=== PATIENT | female | born 1970 ===

== ENCOUNTER 2018-02-05 20:04 | Inpatient (IN) | payer OTHER ==
[2018-02-05] MEDS ORDERED: Sodium Chloride 0.9% 1,000 ML IV STA (21:00)
--- NOTE | 2018-02-05 21:04 | ED PDOC ---
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 Patient states when pain started she was vomiting, which stopped that day, but pain persisted. Associated fever x 2 days. Denies headache, dizziness, nausea/ vomiting, cough, chest pain, shortness of breath, palpitations, changes in bowel movements, urinary symptoms, recent travel, sick contacts. Past Medical History Reviewed: Historical Data, Nursing Documentation, Vital Signs Vital Signs: Last Vital Signs Temp 98.7 F 02/05/18 22:34 Pulse 76 02/05/18 22:34 Resp 16 02/05/18 22:34 BP 129/53 L 02/05/18 22:34 Pulse Ox 98 02/05/18 23:05 - Medical History PMH: No Chronic Diseases - Surgical History Surgical History: No Surg Hx - Family History Family History: States: No Known Family Hx - Allergies Allergies/Adverse Reactions: Allergies Allergy/AdvReac Type Severity Reaction Status Date / Time No Known Allergies Allergy Verified 02/05/18 20:18 Review of Systems ROS Statement: Except As Marked, All Systems Reviewed And Found Negative Constitutional: Positive for: Fever Gastrointestinal: Positive for: Abdominal Pain Physical Exam - Reviewed Nursing Documentation Reviewed: Yes Vital Signs Reviewed: Yes - Physical Exam Appears: Positive for: Well, Non-toxic, No Acute Distress Head Exam: Positive for: ATRAUMATIC, NORMAL INSPECTION, NORMOCEPHALIC Skin: Positive for: Normal Color Eye Exam: Positive for: Normal appearance ENT: Positive for: Normal ENT Inspection Cardiovascular/Chest: Positive for: Regular Rate, Rhythm Respiratory: Positive for: Normal Breath Sounds Gastrointestinal/Abdominal: Positive for: Bowel Sounds, Soft, Tenderness (RUQ, right flank, epigastric) Back: Positive for: Normal Inspection Extremity: Positive for: Normal ROM Neurologic/Psych: Positive for: Alert, Oriented (x3) - Laboratory Results Result Diagrams: 02/05/18 21:42 02/05/18 21:42 - ECG ECG: Positive for: Viewed By Me (reviewed by ED attending) ECG Rhythm: Positive for: Sinus Rhythm O2 Sat by Pulse Oximetry: 98 - Radiology X-Ray: Viewed By Me X-Ray Interpretation: No Acute Disease - Progress ED Course And Treament: labs, urine, abdomen u/s, IV fluids, IV toradol, PO tylenol EXAM: US Abdomen Limited, Right Upper Quadrant CLINICAL HISTORY: The patient is a 47 years female; Pain and signs and symptoms; Fever and nausea and vomiting; Abdominal pain; Epigastric; Additional info: Right upper abdominal pain, fever 9:00 PM TECHNIQUE: Real-time ultrasound of the right upper quadrant with image documentation. COMPARISON: No relevant prior studies available. FINDINGS: Liver: Unremarkable. Gallbladder: Cholelithiasis and gallbladder wall thickening. 2.3 x 2.5 cm calculus noted at the gallbladder neck. As per the technologist note, sonographic Austin's sign is negative. Correlate clinically. Common bile duct: Common bile duct is dilated measuring up to 7.5 mm.. Pancreas: Unremarkable as visualized. Right kidney: Unremarkable. No hydronephrosis. IMPRESSION: Cholelithiasis and gallbladder wall thickening. 2.3 x 2.5 cm calculus noted at the gallbladder neck. As per the technologist note, sonographic Austin's sign is negative. Correlate clinically. Case discussed with ED attending Dr. Page, will call GI for consult and start IV antibiotics Case discussed with Dr. Ferrara, covering for Dr. Johns, GI on-call: states no GI intervention at this time; recommends IV antibiotics, NPO and surgical consult Case discussed with Dr. Jeronimo, surgical supervisor on-call; will admit to Dr. Nielsen's service for OR in am Disposition - Clinical Impression Clinical Impression: Acute cholecystitis - Patient ED Disposition Is Patient to be Admitted: Yes - Disposition Disposition Time: 00:00 Condition: FAIR
[2018-02-05 21:52] LABS: BASO % 0.3 % (0.0-2.0); EOS # 0.1 K/uL (0.0-0.7); EOS % 0.4 % (0.0-4.0); HEMOGLOBIN 12.4 g/dL (12.0-16.0); LYMPH # 1.8 K/uL (1.0-4.3); LYMPH % 12.8 % (20.0-40.0); MEAN CORPUSCULAR HGB CONC 34.1 g/dL (33.0-37.0); MEAN PLATELET VOLUME 8.4 fl (7.2-11.7); MONO # 1.2 K/uL (0.0-0.8); MONO % 8.3 % (0.0-10.0); NEUT % 78.2 % (50.0-75.0); NRBC % 0.1 % (0.0-0.0); RBC 4.28 Mil/uL (3.80-5.20); RED CELL DISTRIBUTION WIDTH 13.1 % (11.5-14.5); WHITE BLOOD COUNT 14.1 K/uL (4.8-10.8)
[2018-02-05 22:08] LABS: SQUAMOUS EPITHIAL < 1 /hpf (0-5); URINE BACTERIA RARE (<OCC); URINE BILIRUBIN NEGATIVE (NEGATIVE); URINE BLOOD LARGE (NEGATIVE); URINE CLARITY CLEAR (Clear); URINE COLOR YELLOW (YELLOW); URINE GLUCOSE (UA) NEG (Normal); URINE LEUKOCYTE ESTERASE NEG Leu/uL (Negative); URINE PROTEIN NEGATIVE (NEGATIVE); URINE UROBILINOGEN 0.2-1.0 mg/dL (0.2-1.0)
[2018-02-05 22:14] LABS: CALCIUM 8.4 mg/dL (8.4-10.2); GFR AFRICAN-AMERICAN > 60; GFR NON-AFRICAN AMERICAN > 60; LIPASE 32 U/L (23-300)
[2018-02-05 22:35] LABS: ALB/GLOB RATIO 1.1 (1.0-2.1); ALBUMIN 4.2 g/dL (3.5-5.0); ALT/SGPT 42 U/L (9-52); AST/SGOT 51 U/L (14-36); BLOOD UREA NITROGEN 4 mg/dl (7-17)
[2018-02-05] MEDS ORDERED: metroNIDAZOLE 500mg/100ml NS 100 ML IV STA (23:33)
[2018-02-05] MEDS ORDERED: Ciprofloxacin 400mg/200ml D5W 400 MG/200 ML BAG IV ONE (23:33)
--- NOTE | 2018-02-06 00:39 | CP.PCM.HP ---
History of Present Illness - History of Present Illness History of Present Illness: General Surgery Dr. Nielsen 47 y/o F w/ no PMHx presents to the ED c/o abd pain. Pt reports pain started Saturday in epigastric region w/ associated N/V. Pt reports 14 episodes NBNB vomiting on Saturday, which has since resolved. However pt now reports subjective F/C and pain more localized to RUQ w/ radiation down R flank which is what prompted pt to come in to ED for evaluation. Pt denies similar pain the past. Pain made worse by movement. Nothing makes pain better. Pt denies CP, SOB , D/C. PMHx: denies Meds: reviewed in chart NKDA PSHx: denies SHx: denies tobacco, EtOH, drug use FHx: noncontributory Present on Admission - Present on Admission Any Indicators Present on Admission: No Review of Systems - Review of Systems All systems: reviewed and no additional remarkable complaints except (see HPI) Past Patient History - Past Social History Smoking Status: Never Smoked - PSYCHIATRIC Hx Substance Use: No - SURGICAL HISTORY Hx Surgeries: No Meds Allergies/Adverse Reactions: Allergies Allergy/AdvReac Type Severity Reaction Status Date / Time No Known Allergies Allergy Verified 02/05/18 20:18 Physical Exam - Constitutional Appears: Non-toxic, No Acute Distress - Head Exam Head Exam: NORMAL INSPECTION - Eye Exam Eye Exam: Normal appearance - ENT Exam ENT Exam: Mucous Membranes Moist - Respiratory Exam Respiratory Exam: NORMAL BREATHING PATTERN. absent: Accessory Muscle Use, Respiratory Distress - Cardiovascular Exam Cardiovascular Exam: REGULAR RHYTHM. absent: Bradycardia, Tachycardia - GI/Abdominal Exam GI & Abdominal Exam: Soft, Tenderness (RUQ TTP). absent: Distended, Firm, Guarding, Rebound - Expanded GI/Abdominal Exam Expanded Expanded GI & Abdominal Exam: Austin's Sign - Extremities Exam Extremities exam: Positive for: normal inspection - Neurological Exam Neurological exam: Alert, Oriented x3 - Psychiatric Exam Psychiatric exam: Normal Affect, Normal Mood - Skin Skin Exam: Dry, Intact, Normal Color, Warm Results - Vital Signs Recent Vital Signs: Last Vital Signs Temp 98.7 F 02/05/18 22:34 Pulse 76 02/05/18 22:34 Resp 16 02/05/18 22:34 BP 129/53 L 02/05/18 22:34 Pulse Ox 98 02/05/18 23:05 - Labs Result Diagrams: 02/05/18 21:42 02/05/18 21:42 Labs: Laboratory Results - last 24 hr 02/05/18 02/05/18 02/05/18 21:42 21:42 21:42 WBC 14.1 H RBC 4.28 Hgb 12.4 Hct 36.4 MCV 85.0 MCH 29.0 MCHC 34.1 RDW 13.1 Plt Count 321 MPV 8.4 Neut % (Auto) 78.2 H Lymph % (Auto) 12.8 L [place] % (Auto) 8.3 Eos % (Auto) 0.4 Baso % (Auto) 0.3 Neut # (Auto) 11.0 H Lymph # (Auto) 1.8 Ceiba # (Auto) 1.2 H Eos # (Auto) 0.1 Baso # (Auto) 0.0 Sodium 136 Potassium 4.0 Chloride 100 Carbon Dioxide 27 Anion Gap 13 BUN 4 L Creatinine 0.5 L Est GFR ( Amer) > 60 Est GFR (Non-Af Amer) > 60 Random Glucose 111 H Lactic Acid 0.7 Calcium 8.4 Total Bilirubin 1.1 AST 51 H ALT 42 Alkaline Phosphatase 122 Total Protein 8.1 Albumin 4.2 Globulin 3.9 Albumin/Globulin Ratio 1.1 Lipase 32 Urine Color Urine Clarity Urine pH Ur Specific [place] Urine Protein Urine Glucose (UA) Urine Ketones Urine Blood Urine Nitrate Urine Bilirubin Urine Urobilinogen Ur Leukocyte Esterase Urine RBC (Auto) Urine Microscopic WBC Ur Squamous Epith Cells Urine Bacteria 02/05/18 21:42 WBC RBC Hgb Hct MCV MCH MCHC RDW Plt Count MPV Neut % (Auto) Lymph % (Auto) [place] % (Auto) Eos % (Auto) Baso % (Auto) Neut # (Auto) Lymph # (Auto) [place] # (Auto) Eos # (Auto) Baso # (Auto) Sodium Potassium Chloride Carbon Dioxide Anion Gap BUN Creatinine Est GFR ( Amer) Est GFR (Non-Af Amer) Random Glucose Lactic Acid Calcium Total Bilirubin AST ALT Alkaline Phosphatase Total Protein Albumin Globulin Albumin/Globulin Ratio Lipase Urine Color Yellow Urine Clarity Clear Urine pH 7.0 Ur Specific [place] 1.005 Urine Protein Negative Urine Glucose (UA) Neg Urine Ketones Trace Urine Blood Large Urine Nitrate Negative Urine Bilirubin Negative Urine Urobilinogen 0.2-1.0 Ur Leukocyte Esterase Neg Urine RBC (Auto) 7 H Urine Microscopic WBC 1 Ur Squamous Epith Cells < 1 Urine Bacteria Rare - Imaging and Cardiology US - abdomen Status: Image reviewed by me, Report reviewed by me Assessment & Plan - Assessment and Plan (Free Text) Assessment: 47 y/o F w/ abd pain 2/2 acute cholecystitis - NPO/IVF - IV Abx - pain management - anti-emetic - AM labs - monitor vitals Q6 - OR tomorrow vs this admission for maria eugenia ernestina (TBD) - encourage OOB to chair/Amb/IS use Pt discussed w/ Dr. Morales Jeronimo DO PGY3
[2018-02-06] MEDS ORDERED: HYDROmorphone 0.5 mg/0.5 ml ISec IVP PRN (00:45)
[2018-02-06] MEDS ORDERED: metroNIDAZOLE 500mg/100ml NS 100 ML IVPB ONE (01:13)
[2018-02-06] MEDS: Lactated Ringer's 1,000 ML IV SCH (01:19)
[2018-02-06] MEDS: metroNIDAZOLE 500mg/100ml NS 100 ML IVPB SCH ×3 (01:23→20:42)
[2018-02-06] MEDS: Ciprofloxacin 400mg/200ml D5W 400 MG/200 ML BAG IVPB SCH ×3 (01:23→21:39)
[2018-02-06] MEDS ORDERED: Ciprofloxacin 400mg/200ml D5W 400 MG/200 ML BAG IVPB ONE (02:26)
--- NOTE | 2018-02-06 07:33 | CARD ---
APPROVED REPORT Date of service: 02/06/2018 <Conclusion> Normal sinus rhythm Normal ECG
[2018-02-06 07:37] LABS: BASO # 0.1 K/uL (0.0-0.2); EOS # 0.4 K/uL (0.0-0.7); EOS % 3.5 % (0.0-4.0); HEMOGLOBIN 9.2 g/dL (12.0-16.0); LYMPH # 3.9 K/uL (1.0-4.3); LYMPH % 34.7 % (20.0-40.0); MEAN CELL VOLUME 87.4 fl (81.0-99.0); MEAN CORPUSCULAR HEMOGLOBIN 28.2 pg (27.0-31.0); MEAN CORPUSCULAR HGB CONC 32.2 g/dL (33.0-37.0); MEAN PLATELET VOLUME 10.6 fl (7.2-11.7); MONO # 2.5 K/uL (0.0-0.8); MONO % 22.1 % (0.0-10.0); NEUT # 4.3 K/uL (1.8-7.0); NEUT % 38.7 % (50.0-75.0); NRBC % 0.1 % (0.0-0.0); PLATELET COUNT 318 K/uL (130-400); RBC 3.25 Mil/uL (3.80-5.20); WHITE BLOOD COUNT 11.2 K/uL (4.8-10.8)
[2018-02-06 07:42] LABS: INR 1.2; PARTIAL THROMBOPLASTIN TIME 31.9 Seconds (25.6-37.1); PROTHROMBIN TIME 13.2 Seconds (9.8-13.1)
--- NOTE | 2018-02-06 08:32 | RAD ---
Date of service: 02/06/2018 HISTORY: admit COMPARISON: No prior. FINDINGS: LUNGS: The lungs are well inflated and clear. PLEURA: No significant pleural effusion identified, no pneumothorax apparent. CARDIOVASCULAR: Normal. OSSEOUS STRUCTURES: No significant abnormalities. VISUALIZED UPPER ABDOMEN: Normal. OTHER FINDINGS: None. IMPRESSION: No active pulmonary disease.
[2018-02-06 08:40] LABS: ALB/GLOB RATIO 1.1 (1.0-2.1); ALBUMIN 3.6 g/dL (3.5-5.0); ALT/SGPT 45 U/L (9-52); AST/SGOT 46 U/L (14-36); BLOOD UREA NITROGEN 5 mg/dl (7-17); CALCIUM 8.2 mg/dL (8.4-10.2); GFR AFRICAN-AMERICAN > 60; GFR NON-AFRICAN AMERICAN > 60
--- NOTE | 2018-02-06 09:10 | US ---
Date of service: 02/05/2018 HISTORY: right upper abdominal pain, fever COMPARISON: None. TECHNIQUE: Sonographic evaluation of the right upper quadrant of the abdomen. FINDINGS: LIVER: Measures 15.5 cm in length. Normal echogenicity of the liver parenchyma. No mass. No intrahepatic bile duct dilatation. GALLBLADDER: The gallbladder is distended with severe wall thickening, there are multiple gallstones with a 2.5 cm stone in the region of the neck of the gallbladder. No pericholecystic fluid. The sonographic Austin's sign is negative. COMMON BILE DUCT: Measures 7.5 mm. Diffuse dilatation of the common bile duct without evidence for choledocholithiasis. PANCREAS: Unremarkable as visualized. No mass. No ductal dilatation. RIGHT KIDNEY: Measures 9.6 cm in length. Normal echogenicity. No calculus, mass, or hydronephrosis. AORTA: No aneurysmal dilatation. IVC: Unremarkable. OTHER FINDINGS: None . IMPRESSION: The constellation of findings may represent acute calculus cholecystitis in the appropriate clinical setting. Diffuse dilatation of the common bile duct without evidence for choledocholithiasis. If clinically indicated, correlation with MRCP may be performed to exclude distal stone. A preliminary report was provided by [employer] services.
[2018-02-06] MEDS ORDERED: Potassium CL 10mEq/100ml 100 ML IVPB ONE (11:44)
[2018-02-06 11:46] LABS: ANISOCYTOSIS SLIGHT; BANDS 1 % (0-2); LARGE PLATELETS PRESENT; LYMPHOCYTE 12 % (20-50); MONOCYTE 4 % (0-10); NEUTROPHIL 82 % (42-75); PLATELET ESTIMATE NORMAL (NORMAL); REACTIVE LYMPHOCYTES 1 % (0-0); TOTAL CELLS COUNTED 100
[2018-02-06] MEDS: Potassium CL 10 MEQ/50 ML 50 ML IVPB SCH ×2 (12:00→13:00)
[2018-02-06] MEDS ORDERED: ceFAZolin IV 1 gm in Dextrose 0 GM/0 ML BAG IVPB ONE (12:56)
[2018-02-06] MEDS ORDERED: Rocuronium 10 mg/ml (5 ml) ONE (13:27)
[2018-02-06] MEDS ORDERED: Propofol 10 mg/ml Inj (20 ML) ONE (13:27)
[2018-02-06] MEDS ORDERED: Midazolam 2 MG/2 ML VIAL ONE (13:27)
[2018-02-06] MEDS ORDERED: Succinylcholine 200 mg/10 ml Inj IV ONE (13:28)
[2018-02-06] MEDS ORDERED: Lactated Ringer's 1,000 ML IV ONE ×3 (13:30→19:30)
--- NOTE | 2018-02-06 15:53 | PCM.SURG1 ---
Surgeon's Initial Post Op Note - Surgeon's Notes Surgeon: Dr. Nielsen Scrap Sawyer: Dr. Riggins Type of Anesthesia: General Endo Anesthesia Administered By: Alie Pre-Operative Diagnosis: Acute Cholecystitis Operative Findings: same Post-Operative Diagnosis: same Operation Performed: Laparoscopic Cholecystectomy Specimen/Specimens Removed: gallbladder Estimated Blood Loss: EBL {In ML}: 25 Blood Products Given: N/A Drains Used: No Drains Post-Op Condition: Good Date of Surgery/Procedure: 02/06/18 Time of Surgery/Procedure: 15:53
[2018-02-06] MEDS ORDERED: Lactated Ringer's 1,000 ML IV SCH (16:15)
[2018-02-06] MEDS: HYDROmorphone 1 mg/ml ISec IVP PRN ×2 (16:33→16:42)
[2018-02-06] MEDS ORDERED: HYDROmorphone 1 mg/ml ISec ONE (16:42)
[2018-02-07] MEDS: Oxycodone/Acetaminophen 5/325 mg Tab PO PRN ×3 (01:08→18:14)
--- NOTE | 2018-02-07 03:12 | OP ---
Copied To: Nora Riggins DO Attending MD: Claudia Nielsen MD PROCEDURE DATE: 02/06/2018 SURGEON: Claudia Nielsen MD MANAGER BUSINESS MANAGEMENT: Nora Riggins DO PREOPERATIVE DIAGNOSIS: Acute cholecystitis. POSTOPERATIVE DIAGNOSIS: Acute cholecystitis. PROCEDURE: Laparoscopic cholecystectomy. INDICATIONS: This is a 47-year-old female who developed right upper quadrant pain, nausea and vomiting, and on workup was found to have acute cholecystitis with a normal common bile duct. Laparoscopic cholecystectomy was indicated. DESCRIPTION OF PROCEDURE: The patient was placed on the operating table in the supine position. General anesthesia was induced. A time-out was completed verifying correct patient, procedure, site, positioning, implants and special equipment prior to beginning the procedure. An NG tube was placed. The abdomen was prepped and draped in the usual sterile fashion. An incision was made in a natural skin line below the umbilicus. The fascia was elevated, and the Veress needle was inserted. Proper position was confirmed by aspiration and saline meniscus test. The abdomen was insufflated with carbon dioxide to a pressure of 15 mmHg. The patient tolerated insufflation well. A laparoscope was inserted, and the abdomen inspected. No injuries from initial trocar placement were noted. Additional trocars were then inserted in the following locations, and a 11-mm trocar in the epigastrium and two 5-mm trocars along the right costal margin. The abdomen was inspected and no abnormalities were found. The table was placed in reverse Trendelenburg position with the right side up. The gallbladder was then aspirated with the needle, and bile was drained. Filmy adhesions within the gallbladder and the duodenum were lysed. The dome of the gallbladder was grasped with an atraumatic grasper, passed to the lateral port and retracted over the dome of the liver. The infundibulum was grasped with an atraumatic grasper to the midclavicular port and retracted towards the right lower quadrant. This maneuver exposed Calot triangle. The peritoneum overlying the gallbladder infundibulum was incised, and the cystic duct and cystic artery were identified and circumferentially dissected. The cystic duct and cystic artery were then triply clipped and divided close to the gallbladder. The gallbladder was then dissected from its peritoneal attachments by electrocautery. Hemostasis was checked. The gallbladder contained stones were removed using an endoscopic retrieval bag through the subxiphoid port. The gallbladder was passed off the table as a specimen. The gallbladder fossa was copiously irrigated with saline and hemostasis was obtained. There was no evidence of bleeding from the gallbladder fossa or cystic artery, and there was no leakage of bile from the cystic duct stump. Secondary trocars were removed. The laparoscope was withdrawn, and the umbilical trocar was removed. The abdomen was allowed to collapse. The 12-mm trocar site was closed with a series of three [id number] 0 Vicryl sutures. The skin was then closed with subcuticular sutures of 4-0 Monocryl, and topical skin adhesive was applied. The NG tube was removed. The patient tolerated the procedure well. She was extubated and taken to the postanesthesia care unit in stable condition. Nora Riggins DO Claudia Nielsen MD
[2018-02-07] MEDS: metroNIDAZOLE 500mg/100ml NS 100 ML IVPB SCH ×3 (04:10→20:08)
[2018-02-07] MEDS: Ciprofloxacin 400mg/200ml D5W 400 MG/200 ML BAG IVPB SCH ×3 (05:24→21:15)
[2018-02-07] MEDS: Lactated Ringer's 1,000 ML IV SCH ×2 (05:29→14:38)
--- NOTE | 2018-02-07 08:32 | CP.PCM.PN ---
Subjective - Date & Time of Evaluation Date of Evaluation: 02/07/18 Time of Evaluation: 07:00 - Subjective Subjective: General Surgery Pt Seen and examined. Reports pain at incisions, improves with medication. Desaturating overnight to 90% without O2. She does not take deep breaths due to pain. Febrile overnight to Tmax of 101.6 @ 2 AM. says she still feels febrile. Tolerated liquids last night, did not try more. Denies Nausea, emesis, chills. Objective - Vital Signs/Intake and Output Vital Signs (last 24 hours): Temp Pulse Resp BP Pulse Ox 98.6 F 100 H 16 119/62 95 02/07/18 08:22 02/07/18 08:22 02/07/18 08:22 02/07/18 08:22 02/07/18 08:22 Intake and Output: 02/07/18 02/07/18 06:59 18:59 Intake Total 2720 Output Total 800 Balance 1920 - Medications Medications: Current Medications Acetaminophen (Tylenol 325mg Tab) 650 mg PO Q6 PRN PRN Reason: Fever >100.4 F Last Admin: 02/07/18 02:06 Dose: 650 mg Hydromorphone HCl (Dilaudid) 0.5 mg IVP Q3 PRN PRN Reason: Pain, severe (8-10) Last Admin: 02/06/18 21:47 Dose: 0.5 mg Ciprofloxacin (Cipro 400mg/200ml Dsw) 400 mg in 200 mls @ 200 mls/hr IVPB Q8@ 0500,1300,2100 IVANA PRN Reason: Protocol Last Admin: 02/07/18 05:24 Dose: 200 mls/hr Metronidazole (Flagyl 500mg/100ml Ns) 100 mls @ 100 mls/hr IVPB Q8@0500,1300, 2100 IVANA PRN Reason: Protocol Last Admin: 02/07/18 04:10 Dose: 100 mls/hr Ondansetron HCl (Zofran Inj) 4 mg IVP Q4 PRN PRN Reason: Nausea/Vomiting Oxycodone/Acetaminophen (Percocet 5/325 Mg Tab) 1 tab PO Q4 PRN PRN Reason: Pain, moderate (4-7) Stop: 02/09/18 15:55 Last Admin: 02/07/18 01:08 Dose: 1 tab - Labs Labs: 02/06/18 07:00 02/06/18 06:20 PT 13.2 Seconds (9.8-13.1) H 02/06/18 06:20 INR 1.2 02/06/18 06:20 APTT 31.9 Seconds (25.6-37.1) 02/06/18 06:20 - Constitutional Appears: No Acute Distress - Head Exam Head Exam: ATRAUMATIC, NORMOCEPHALIC - Eye Exam Eye Exam: EOMI. absent: Scleral icterus - Respiratory Exam Respiratory Exam: absent: Accessory Muscle Use, Respiratory Distress, NORMAL BREATHING PATTERN (shallow breathing) - Cardiovascular Exam Cardiovascular Exam: Tachycardia (mild @ 100bpm), +S1, +S2 - GI/Abdominal Exam GI & Abdominal Exam: Soft, Tenderness (over incisions). absent: Distended, Firm , Guarding, Rigid, Rebound Additional comments: incisions C/D/I, no erythema or drainage - Extremities Exam Extremities Exam: Normal Capillary Refill. absent: Calf Tenderness, Pedal Edema - Neurological Exam Neurological Exam: Alert, Awake, Oriented x3 - Skin Skin Exam: Diaphoretic, Normal Color, Warm Assessment and Plan - Assessment and Plan (Free Text) Assessment: 47F presenting with acute cholecystitis POD#1 S/P laparoscopic cholecystectomy Plan: Encouraged IS use and ambulation Monitor for continued fevers and O2 requirements Check for diet tolerance Pain control PRN Will D/W Dr. Morales Araujo PGY4
--- NOTE | 2018-02-07 09:03 | CON ---
Copied To: Fabio Johns MD/ PhD Attending MD: Fabio Johns MD/ PhD DATE: 02/06/2018 REFERRING PHYSICIAN: Dr. Nielsen. REASON FOR CONSULTATION: Cholecystitis, abdominal pain, elevated LFTs. HISTORY OF PRESENT ILLNESS: This is a pleasant 47-year-old female who has been complaining of multiple episodes of discomfort, nausea, epigastric pain and some vomiting since weekend. Pain is actually improving but still present and vomiting as well. Lying in bed comfortable, in no apparent distress. PAST MEDICAL HISTORY: As above. PAST SURGICAL HISTORY: As above. MEDICATIONS: Reviewed. REVIEW OF SYSTEMS: All other systems have been reviewed and negative apart from the HPI. PHYSICAL EXAMINATION: VITAL SIGNS: Here in the hospital, grossly unremarkable. GENERAL: This is a pleasant 47-year-old female, in no apparent distress. HEENT: Head is normocephalic and atraumatic. Eyes, pupils are equal,round, and reactive to light bilaterally. No conjunctival pallor or icterus. NECK: Supple. Normal range of motion. No lymphadenopathy appreciated. LUNGS: Coarse breath sounds bilaterally. HEART: S1 and S2. Regular rate and rhythm. No murmur appreciated. ABDOMEN: Soft and nontender. Bowel sounds present. No rebound. No guarding. RECTAL: Deferred. EXTREMITIES: Pulses present bilaterally. SKIN: Warm, dry, and intact. NEUROLOGIC: A and O x3. LABORATORY DATA: All labs and radiology have been reviewed. WBC is 11.2 down from 14.1, hemoglobin 9.2 1.2, potassium is 3.4. Ultrasound shows cholelithiasis, gallbladder . ASSESSMENT AND PLAN: This is a 47-year-old female with cholecystitis with biliary colic. antibiotics. Nothing by mouth for now. Pain control . Fabio Johns MD/ PhD
[2018-02-07 10:07] LABS: HEMOGLOBIN 10.6 g/dL (12.0-16.0); MEAN CELL VOLUME 86.2 fl (81.0-99.0); MEAN CORPUSCULAR HEMOGLOBIN 28.6 pg (27.0-31.0); MEAN CORPUSCULAR HGB CONC 33.2 g/dL (33.0-37.0); RBC 3.69 Mil/uL (3.80-5.20); RED CELL DISTRIBUTION WIDTH 13.2 % (11.5-14.5); WHITE BLOOD COUNT 12.1 K/uL (4.8-10.8)
[2018-02-07 10:21] LABS: ALB/GLOB RATIO 1.1 (1.0-2.1); ALBUMIN 3.2 g/dL (3.5-5.0); ALT/SGPT 137 U/L (9-52); AST/SGOT 118 U/L (14-36); BLOOD UREA NITROGEN 6 mg/dl (7-17); CALCIUM 8.2 mg/dL (8.4-10.2); GFR AFRICAN-AMERICAN > 60; GFR NON-AFRICAN AMERICAN > 60
[2018-02-08] MEDS: metroNIDAZOLE 500mg/100ml NS 100 ML IVPB SCH ×3 (04:05→20:21)
[2018-02-08] MEDS: Ciprofloxacin 400mg/200ml D5W 400 MG/200 ML BAG IVPB SCH ×3 (05:00→21:17)
[2018-02-08 07:55] LABS: HEMOGLOBIN 10.8 g/dL (12.0-16.0); MEAN CELL VOLUME 85.6 fl (81.0-99.0); MEAN CORPUSCULAR HEMOGLOBIN 29.2 pg (27.0-31.0); MEAN CORPUSCULAR HGB CONC 34.1 g/dL (33.0-37.0); RBC 3.7 Mil/uL (3.80-5.20); RED CELL DISTRIBUTION WIDTH 13.1 % (11.5-14.5); WHITE BLOOD COUNT 13.5 K/uL (4.8-10.8)
[2018-02-08 08:12] LABS: ALBUMIN 3.2 g/dL (3.5-5.0); ALT/SGPT 98 U/L (9-52); AST/SGOT 55 U/L (14-36); BLOOD UREA NITROGEN 4 mg/dl (7-17); CALCIUM 8.2 mg/dL (8.4-10.2); GFR AFRICAN-AMERICAN > 60; GFR NON-AFRICAN AMERICAN > 60
--- NOTE | 2018-02-08 15:30 | CP.PCM.PN ---
Subjective - Date & Time of Evaluation Date of Evaluation: 02/08/18 Time of Evaluation: 15:28 - Subjective Subjective: General Surgery - Dr. Nielsen Pt S&E. Fevers overnight. Pt is tolerating regular diet and pain is well controlled. She has been OOB ambulating and working with incentive spirometer. Objective - Vital Signs/Intake and Output Vital Signs (last 24 hours): Temp Pulse Resp BP Pulse Ox 100 F H 91 H 18 112/63 97 02/08/18 14:03 02/08/18 12:15 02/08/18 12:15 02/08/18 12:15 02/08/18 09:47 Intake and Output: 02/08/18 02/08/18 06:59 18:59 Intake Total 1880 Balance 1880 - Medications Medications: Current Medications Hydromorphone HCl (Dilaudid) 0.5 mg IVP Q3 PRN PRN Reason: Pain, severe (8-10) Last Admin: 02/06/18 21:47 Dose: 0.5 mg Ciprofloxacin (Cipro 400mg/200ml Dsw) 400 mg in 200 mls @ 200 mls/hr IVPB Q8@ 0500,1300,2100 IVANA PRN Reason: Protocol Last Admin: 02/08/18 12:14 Dose: 200 mls/hr Metronidazole (Flagyl 500mg/100ml Ns) 100 mls @ 100 mls/hr IVPB Q8@0500,1300, 2100 IVANA PRN Reason: Protocol Last Admin: 02/08/18 13:50 Dose: 100 mls/hr Ondansetron HCl (Zofran Inj) 4 mg IVP Q4 PRN PRN Reason: Nausea/Vomiting Oxycodone/Acetaminophen (Percocet 5/325 Mg Tab) 1 tab PO Q4 PRN PRN Reason: Pain, moderate (4-7) Stop: 02/09/18 15:55 Last Admin: 02/07/18 18:14 Dose: 1 tab - Labs Labs: 02/08/18 07:02 02/08/18 07:02 PT 13.2 Seconds (9.8-13.1) H 02/06/18 06:20 INR 1.2 02/06/18 06:20 APTT 31.9 Seconds (25.6-37.1) 02/06/18 06:20 - Constitutional Appears: No Acute Distress - Head Exam Head Exam: ATRAUMATIC, NORMAL INSPECTION, NORMOCEPHALIC - Eye Exam Eye Exam: Normal appearance - Cardiovascular Exam Cardiovascular Exam: REGULAR RHYTHM - GI/Abdominal Exam GI & Abdominal Exam: Soft. absent: Distended, Guarding, Tenderness, Rebound - Neurological Exam Neurological Exam: Alert, Oriented x3 - Psychiatric Exam Psychiatric exam: Normal Affect, Normal Mood - Skin Skin Exam: Dry, Intact Assessment and Plan - Assessment and Plan (Free Text) Assessment: 47F w/ acute cholecystitis POD#2 S/P laparoscopic cholecystectomy Plan: -Regular diet -Encourage Incentive Spirometer use and ambulation -Monitor for fevers -Continue Abx -Pain control PRN DW Dr Morales Riggins PGY4
[2018-02-09] MEDS: metroNIDAZOLE 500mg/100ml NS 100 ML IVPB SCH ×2 (04:05→12:45)
[2018-02-09] MEDS: Ciprofloxacin 400mg/200ml D5W 400 MG/200 ML BAG IVPB SCH ×2 (05:06→12:46)
[2018-02-09 07:14] LABS: BASO # 0.1 K/uL (0.0-0.2); BASO % 0.5 % (0.0-2.0); EOS # 0.2 K/uL (0.0-0.7); EOS % 1.3 % (0.0-4.0); HEMOGLOBIN 10.5 g/dL (12.0-16.0); LYMPH # 1.2 K/uL (1.0-4.3); LYMPH % 10.3 % (20.0-40.0); MEAN CELL VOLUME 85.2 fl (81.0-99.0); MEAN CORPUSCULAR HEMOGLOBIN 28.8 pg (27.0-31.0); MEAN CORPUSCULAR HGB CONC 33.8 g/dL (33.0-37.0); MEAN PLATELET VOLUME 7.5 fl (7.2-11.7); MONO % 8.9 % (0.0-10.0); NEUT # 9.1 K/uL (1.8-7.0); RBC 3.64 Mil/uL (3.80-5.20); RED CELL DISTRIBUTION WIDTH 13.2 % (11.5-14.5); WHITE BLOOD COUNT 11.5 K/uL (4.8-10.8)
--- NOTE | 2018-02-09 08:15 | CP.PCM.DIS ---
Provider - Provider Date of Admission: 02/06/18 00:23 Attending physician: Claudia Nielsen MD Time Spent in preparation of Discharge (in minutes): 30 Hospital Course - Lab Results Lab Results: Micro Results 02/05/18 21:09 Blood-Venous Blood Culture - Preliminary NO GROWTH AFTER 48 HOURS 02/05/18 21:42 Urine,Clean Catch Urine Culture - Final Gram Negative [place] Most Recent Lab Values WBC 11.5 K/uL (4.8-10.8) H 02/09/18 07:00 RBC 3.64 Mil/uL (3.80-5.20) L 02/09/18 07:00 Hgb 10.5 g/dL (12.0-16.0) L 02/09/18 07:00 Hct 31.0 % (34.0-47.0) L 02/09/18 07:00 MCV 85.2 fl (81.0-99.0) 02/09/18 07:00 MCH 28.8 pg (27.0-31.0) 02/09/18 07:00 MCHC 33.8 g/dL (33.0-37.0) 02/09/18 07:00 RDW 13.2 % (11.5-14.5) 02/09/18 07:00 Plt Count 344 K/uL (130-400) 02/09/18 07:00 MPV 7.5 fl (7.2-11.7) 02/09/18 07:00 Neut % (Auto) 79.0 % (50.0-75.0) H 02/09/18 07:00 Lymph % (Auto) 10.3 % (20.0-40.0) L 02/09/18 07:00 [place] % (Auto) 8.9 % (0.0-10.0) 02/09/18 07:00 Eos % (Auto) 1.3 % (0.0-4.0) 02/09/18 07:00 Baso % (Auto) 0.5 % (0.0-2.0) 02/09/18 07:00 Neut # (Auto) 9.1 K/uL (1.8-7.0) H 02/09/18 07:00 Lymph # (Auto) 1.2 K/uL (1.0-4.3) 02/09/18 07:00 Kings # (Auto) 1.0 K/uL (0.0-0.8) H 02/09/18 07:00 Eos # (Auto) 0.2 K/uL (0.0-0.7) 02/09/18 07:00 Baso # (Auto) 0.1 K/uL (0.0-0.2) 02/09/18 07:00 Neutrophils % (Manual) 82 % (42-75) H 02/06/18 07:00 Band Neutrophils % 1 % (0-2) 02/06/18 07:00 Lymphocytes % (Manual) 12 % (20-50) L 02/06/18 07:00 Reactive Lymphs % 1 % (0-0) H 02/06/18 07:00 Monocytes % (Manual) 4 % (0-10) 02/06/18 07:00 Platelet Estimate Normal (NORMAL) 02/06/18 07:00 Large Platelets Present 02/06/18 07:00 Anisocytosis (manual) Slight 02/06/18 07:00 PT 13.2 Seconds (9.8-13.1) H 02/06/18 06:20 INR 1.2 02/06/18 06:20 APTT 31.9 Seconds (25.6-37.1) 02/06/18 06:20 Sodium 137 mmol/l (132-148) 02/08/18 07:02 Potassium 3.3 MMOL/L (3.6-5.0) L 02/08/18 07:02 Chloride 100 mmol/L (98-107) 02/08/18 07:02 Carbon Dioxide 31 mmol/L (22-30) H 02/08/18 07:02 Anion Gap 9 (10-20) L 02/08/18 07:02 BUN 4 mg/dl (7-17) L 02/08/18 07:02 Creatinine 0.5 mg/dl (0.7-1.2) L 02/08/18 07:02 Est GFR ( Amer) > 60 02/08/18 07:02 Est GFR (Non-Af Amer) > 60 02/08/18 07:02 Random Glucose 132 mg/dL (65-105) H 02/08/18 07:02 Lactic Acid 0.7 MMOL/L (0.7-2.1) 02/05/18 21:42 Calcium 8.2 mg/dL (8.4-10.2) L 02/08/18 07:02 Phosphorus 2.7 mg/dl (2.5-4.5) 02/08/18 07:02 Magnesium 1.9 MG/DL (1.6-2.3) 02/08/18 07:02 Total Bilirubin 0.5 mg/dl (0.2-1.3) 02/08/18 07:02 AST 55 U/L (14-36) H D 02/08/18 07:02 ALT 98 U/L (9-52) H D 02/08/18 07:02 Alkaline Phosphatase 187 U/L (38-126) H 02/08/18 07:02 Total Protein 6.3 G/DL (6.3-8.2) 02/08/18 07:02 Albumin 3.2 g/dL (3.5-5.0) L 02/08/18 07:02 Globulin 3.1 gm/dL (2.2-3.9) 02/08/18 07:02 Albumin/Globulin Ratio 1.0 (1.0-2.1) 02/08/18 07:02 Lipase 32 U/L (23-300) 02/05/18 21:42 Urine Color Yellow (YELLOW) 02/05/18 21:42 Urine Clarity Clear (Clear) 02/05/18 21:42 Urine pH 7.0 (5.0-8.0) 02/05/18 21:42 Ur Specific [place] 1.005 (1.003-1.030) 02/05/18 21:42 Urine Protein Negative mg/dL (NEGATIVE) 02/05/18 21:42 Urine Glucose (UA) Neg mg/dL (Normal) 02/05/18 21:42 Urine Ketones Trace mg/dL (NEGATIVE) 02/05/18 21:42 Urine Blood Large (NEGATIVE) 02/05/18 21:42 Urine Nitrate Negative (NEGATIVE) 02/05/18 21:42 Urine Bilirubin Negative (NEGATIVE) 02/05/18 21:42 Urine Urobilinogen 0.2-1.0 mg/dL (0.2-1.0) 02/05/18 21:42 Ur Leukocyte Esterase Neg [place]/uL (Negative) 02/05/18 21:42 Urine RBC (Auto) 7 /hpf (0-3) H 02/05/18 21:42 Urine Microscopic WBC 1 /hpf (0-5) 02/05/18 21:42 Ur Squamous Epith Cells < 1 /hpf (0-5) 02/05/18 21:42 Urine Bacteria Rare (<OCC) 02/05/18 21:42 - Hospital Course Hospital Course: General Surgery Dr. Nielsen 47 y/o F w/ no PMHx presented to the ED on 02/06 c/o abd pain. Pt reported pain started Saturday in epigastric region w/ associated N/V. Pt reported 14 episodes NBNB vomiting on Saturday, which had since resolved. However, on presentation, pt reported subjective F/C and pain more localized to RUQ w/ radiation down R flank. Pt denied similar pain the past. Pain made worse by movement. Nothing maked pain better. Pt denied CP, SOB, D/C. Pt underwent Abd U/S in ED which revealed acute cholecystitis. Pt was admitted to surgical service and underwent laparoscopic cholecystectomy later that day. Pt tolerated the procedure well w/ no complications. Pt was kept overngiht for pain management and diet tolerance. Pt developed post-operative fevers and continued leukocytosis, requiring additional day of IV Abx and monitoring. Pt S&E @bedside this AM. NAEO. low-grade temp this AM of 100.7. Pt asymptomatic. tolerating diet. OOB to chair, ambulation. abd pain well controlled. denies F/C, N/V, D/C. pulling 1000cc on incentive spironmeter. Pt is cleared for discharge to home on PO Abx w/ instructions to follow up w/ Dr. Nielsen in office in 7-10 days. Discharge Exam - Head Exam Head Exam: ATRAUMATIC, NORMAL INSPECTION, NORMOCEPHALIC - Eye Exam Eye Exam: Normal appearance - ENT Exam ENT Exam: Mucous Membranes Moist - Respiratory Exam Respiratory Exam: NORMAL BREATHING PATTERN. absent: Accessory Muscle Use, Respiratory Distress - Cardiovascular Exam Cardiovascular Exam: REGULAR RHYTHM. absent: Bradycardia, Tachycardia - GI/Abdominal Exam GI & Abdominal Exam: Soft, Tenderness (appropriate TTP RUQ). absent: Distended , Firm, Guarding, Rebound, Rigid Additional comments: incisions c/d/i skin well approximated - Extremities Exam Extremities exam: normal inspection - Neurological Exam Neurological exam: Alert, Oriented x3 - Psychiatric Exam Psychiatric exam: Normal Affect, Normal Mood - Skin Skin Exam: Dry, Intact, Normal Color, Warm Discharge Plan - Discharge Medications Prescriptions: Ciprofloxacin [Cipro] 500 mg PO BID #14 tab - Follow Up Plan Condition: GOOD Disposition: HOME/ ROUTINE Patient education suggested?: Yes Instructions: How to Prevent Surgical Site Infections, Cholecystectomy, Laparoscopic Surgery Additional Instructions: Follow up with Dr. Nielsen in office in 7-10 days Take all medication as prescribed May take OTC pain meds as needed No heavy lifting (greater than 10lbs) for 4weeks Pt may shower however do not scrub or soak incisions No swimming, pools, tubs, baths until cleared by Dr. Nielsen advance diet as tolerated diarrhea is to be expected within first 1-2mons post surgery and should improve call Dr. Nielsen &/or return to the ED if fever >101, pain, redness, drainage from incisions Referrals: Claudia Nielsen MD [Staff Provider] - [facility] [Outside]
[2018-02-09 12:11] VITALS: BP 119/71
[2018-02-09 12:33] VITALS: PULSE 82; RESP 16; TEMP 99.3; O2SAT 98
== END 2018-02-09 15:03 | disposition home or self-care (01) | DRG 494 ==
LOC: H.ER 20:04 → H.ERHOLD 02-06 00:23 → H.PEDS 02-06 05:18
PROVIDERS: ADMIT Specialist; ATTEND Specialist
PROC: 0FT44ZZ Resection of Gallbladder, Percutaneous Endoscopic Approach (ICD-10-PCS; principal; 2018-02-06 13:30)
DX: K80.00 Calculus of gallbladder with acute cholecystitis without obstruction (principal); R79.89 Other specified abnormal findings of blood chemistry